=== PATIENT | male | born 1995 | race African-American/Black ===

== ENCOUNTER 2017-10-01 00:51 | Emergency (ER) | payer SELFPAY ==
[~2017-10-01] VITALS: Ht 188 cm; Wt 77.1 kg
[2017-10-01] MEDS: SODIUM CHLORIDE 0.9% 2,000 ML IV ONE ×2 (01:00→02:14)
[2017-10-01] MEDS ORDERED: IOHEXOL 300 MG/ML 100ML BOTTLE IJ ONE (01:03)
[2017-10-01 01:45] LABS: Basophils # (auto) 0 uL; Basophils % (auto) 0.6 % (0.0-2.0); Eosinophils # (auto) 0 uL; Eosinophils % (auto) 0.4 % (0.0-7.0); Hematocrit 41.6 % (41.0-53.0); Hemoglobin 13.8 g/dL (13.5-17.5); Lymphocytes # (auto) 3.7 uL; Lymphocytes % (auto) 45.2 % (10.0-50.0); Mean Corpuscular Hemoglobin 28.8 pg (28.0-32.0); Mean Corpuscular Hgb Conc. 33.1 g/dL (32.0-36.0); Mean Corpuscular Volume 87.1 fL (80.0-100.0); Monocytes # (auto) 0.7 uL; Monocytes % (auto) 8.3 % (0.0-12.0); Neutrophils # (auto) 3.7 uL; Neutrophils % (auto) 45.5 % (37.0-80.0); Platelet Count (auto) 227 10^3/uL (140-450); Red Blood Cells 4.78 10^6/uL (4.5-5.90); Red Cell Distribution Width 14.8 % (11.8-14.3); White Blood Cell 8.2 10^3/uL (4.4-10.8)
[2017-10-01] MEDS ORDERED: MIDAZOLAM DRIP 50 mg/50mL 50 ML IV SCH (01:49)
[2017-10-01 01:55] LABS: INR 0.95 (0.9-1.15); Partial Thromboplastin Time 22.5 sec (22.64-33.71); Prothrombin Time 10.4 sec (9.37-12.3)
[2017-10-01 01:56] LABS: Albumin 4.1 g/dL (3.4-5.0); Magnesium 2.4 mg/dL (1.6-2.6); Potassium 3.3 mmol/L (3.5-5.1)
[2017-10-01 01:58] LABS: BUN/Creatinine Ratio 9.3
[2017-10-01] MEDS ORDERED: ETOMIDATE (2MG/ML) 20ML VIAL IV ONE (02:00)
[2017-10-01] MEDS ORDERED: SUCCINYLCHOLINE CHLORIDE 20 MG/ML 10ML VIAL IV ONE (02:00)
[2017-10-01 02:01] LABS: Bilirubin, Total 0.3 mg/dL (0.2-1.0); Total Protein 7.9 g/dL (6.4-8.2)
[2017-10-01] MEDS ORDERED: PROPOFOL 100 ML IV SCH (02:08)
[2017-10-01] MEDS ORDERED: TETANUS-DIPTH-ACEL PERTUSSIS 0.5ML SYRG IM ONE ×2 (02:29→02:45)
[2017-10-01] MEDS ORDERED: SODIUM CHLORIDE 0.9% 1,000 ML IV ONE (02:30)
[2017-10-01] MEDS ORDERED: cefTRIAXone 1GM/10ml IVPUSH 10 ML IV ONE ×3 (02:30→02:45)
[2017-10-01] MEDS ORDERED: fentaNYL Drip 2500mCg/250mlNS 250 ML IV ONE (02:47)
[2017-10-01 03:12] LABS: Urine Bacteria NONE SEEN /hpf (None Seen); Urine Blood Negative /uL (Negative); Urine Specific Gravity 1.025 (1.001-1.035); Urine WBC 2 /hpf (0 - 3)
[2017-10-01] MEDS ORDERED: fentaNYL Drip 2500mCg/250mlNS 250 ML IV SCH (03:13)
[2017-10-01 03:21] VITALS: BP 149/64
[2017-10-01 03:36] LABS: Amphetamine Screen, Urine NEGATIVE (NEGATIVE); Barbiturate Scree,Urine NEGATIVE (NEGATIVE); Benzodiazephine Screen, Urine NEGATIVE (NEGATIVE); Cannabinoid Screen, Urine POSITIVE (NEGATIVE); Cocaine Screen, Urine NEGATIVE (NEGATIVE); Opiate Scree,Urine NEGATIVE (NEGATIVE); Phencyclidine Screen, Urine NEGATIVE (NEGATIVE)
[2017-10-01] MEDS ORDERED: PROPOFOL 100 ML IV ONE (04:36)
[2017-11-30] MEDS ORDERED: LORazepam 2MG/ML-1ML VIAL IV ONE (09:45)
== END 2017-10-01 04:00 | disposition short-term general hospital (02) ==
LOC: ER 00:56 → EDBD 00:56 → ER 04:00
DX: S21.301A Unspecified open wound of right front wall of thorax with penetration into thoracic cavity, initial encounter (principal); S22.31XA Fracture of one rib, right side, initial encounter for closed fracture; S27.1XXA Traumatic hemothorax, initial encounter; W34.00XA Accidental discharge from unspecified firearms or gun, initial encounter; Y93.89 Activity, other specified; Y99.8 Other external cause status; Y92.89 Other specified places as the place of occurrence of the external cause
CPT/HCPCS: 32551; 36415; 36600; 51702; 71045; 71260; 74177; 80053; 80307; 81001; 82805; 83735; 83880; 84484; 85025; 85610; 85730; 86850; 86900; 86901; 87070; 87205; 90471; 90715; 96361; 96365; 96375; 99285; J2250; J2704; J3010; J7030; Q9967; 94002